=== PATIENT | male | born 1955 | race Caucasian/White ===

== ENCOUNTER 2020-08-20 12:44 | Emergency (ER) | payer OTHER ==
[~2020-08-20] VITALS: Ht 177.8 cm; Wt 107.2 kg
[2020-08-20 13:12] VITALS: BP 137/78
--- NOTE | 2020-08-20 14:35 | RAD ---
Study: CR SHOULDER 2+V RIGHT Indication: Fall. Popping. Comparison: None. Findings: No acute fracture is identified or traumatic malalignment. Moderate acromioclavicular joint arthrosis. No advanced arthrosis across the glenohumeral joint articulation. The visualized ribs are grossly intact. Left upper lung granulomas. Impression: No acute fracture or traumatic malalignment at the right shoulder. Electronically signed by: UMAIR BRODERICK MD (08/20/2020 2:32 PM) [id number]
--- NOTE | 2020-08-20 14:42 | PHYS DOC ---
Past Medical History Past Medical History: Anxiety, Asthma, High Cholesterol, Hypertension, Other Additional Past Medical Histor: BASIL CELL, MELANOMA ON BACK Past Surgical History: Other Additional Past Surgical Histo: BASIL CELL CARCINOMA Smoking Status: Former Smoker Alcohol Use: Heavy General Adult EDM: Chief Complaint: SHOULDER INJURY HPI: HPI: Patient is a 64 year old male presents to the emergency room for evaluation of right shoulder injury. He reports approximately 1 hour ago he fell inside and fell with his right arm stretched out. Since that time he has felt like his right shoulder dislocates and reduces if he does any type of overhead motion. He has never had this shoulder symptom in the past. Denies other injuries. Reports no loss of consciousness. Review of Systems: Review of Systems: Constitutional: Denies fever or chills. [] Eyes: Denies change in visual acuity. [] HENT: Denies nasal congestion or sore throat. [] Respiratory: Denies cough or shortness of breath. [] Cardiovascular: Denies chest pain or edema. [] GI: Denies abdominal pain, nausea, vomiting, bloody stools or diarrhea. [] : Denies dysuria. [] Musculoskeletal: Right shoulder pain. [] Integument: Denies rash. [] Neurologic: Denies headache, focal weakness or sensory changes. [] Endocrine: Denies polyuria or polydipsia. [] Lymphatic: Denies swollen glands. [] Psychiatric: Denies depression or anxiety. [] Heart Score: Risk Factors: Risk Factors: DM, Current or recent (<one month) smoker, HTN, HLP, family history of CAD, obesity. Risk Scores: Score 0 - 3: 2.5% MACE over next 6 weeks - Discharge Home Score 4 - 6: 20.3% MACE over next 6 weeks - Admit for Clinical Observation Score 7 - 10: 72.7% MACE over next 6 weeks - Early Invasive Strategies Allergies: Allergies: Allergies Coded Allergies Type Severity Reaction Last Updated Verified No Known Drug Allergies 08/20/20 No Physical Exam: PE: Constitutional: Well developed, well nourished, no acute distress, non-toxic appearance. [] HENT: Normocephalic, atraumatic, bilateral external ears normal, oropharynx moist, no oral exudates, nose normal. [] Eyes: PERRLA, EOMI, conjunctiva normal, no discharge. [] Neck: Normal range of motion, no tenderness, supple, no stridor. [] Skin: Warm, dry, no erythema, no rash.ABRASION TO NASAL BRIDGE [] Back: No tenderness, no CVA tenderness. [] Extremities: RT SHOULDER TTP, NORMAL ABDUCTION/ADDUCTION, POPS C OVERHEAD MOTION [] Neurologic: Alert and oriented X 3, normal motor function, normal sensory function, no focal deficits noted. [] Psychologic: Affect normal, judgement normal, mood normal. [] Current Patient Data: Vital Signs: Vital Signs Date Time Temp Pulse Resp B/P (MAP) Pulse Ox O2 Delivery O2 Flow Rate FiO2 08/20/20 13:12 98.2 112 24 137/78 (97) 95 Room Air 98.2 EKG: EKG: [] Radiology/Procedures: Radiology/Procedures: []PROCEDURE: SHOULDER 2+V RIGHT Study: CR SHOULDER 2+V RIGHT Indication: Fall. Popping. Comparison: None. Findings: No acute fracture is identified or traumatic malalignment. Moderate acromioclavicular joint arthrosis. No advanced arthrosis across the glenohumeral joint articulation. The visualized ribs are grossly intact. Left upper lung granulomas. Impression: No acute fracture or traumatic malalignment at the right shoulder. Electronically signed by: UMAIR BRODERICK MD (08/20/2020 2:32 PM) [id number] Course & Med Decision Making: Course & Med Decision Making Pertinent Labs and Imaging studies reviewed. (See chart for details) [] X-ray of the right shoulder is negative for acute findings, patient is placed in sling, advised follow-up with orthopedics, states he would like to see Dr. Cerrato, referral provided with discharge instructions. He declined prescription for pain medication. He will take [id number] medication as needed. Return to ER for new or worsening symptoms. Extremity is neurovascular intact, stable for discharge home. Felice Disclaimer: Fleice Disclaimer: This electronic medical record was generated, in whole or in part, using a voice recognition dictation system. Departure Departure Impression: Primary Impression: Right shoulder strain Qualified Codes: S46.911A - Strain of unspecified muscle, fascia and tendon at shoulder and upper arm level, right arm, initial encounter Disposition: 01 DC HOME SELF CARE/HOMELESS Referrals: GE JONES MD (PCP) TERENCE CERRATO MD Patient Instructions: Shoulder Pain GE SCHWARZ PIN CHASER Aug 20, 2020 14:42
== END 2020-08-20 15:08 | disposition home or self-care (01) ==
LOC: ER 12:44
DX: S46.911A Strain of unspecified muscle, fascia and tendon at shoulder and upper arm level, right arm, initial encounter (principal); J45.909 Unspecified asthma, uncomplicated; E78.00 Pure hypercholesterolemia, unspecified; I10 Essential (primary) hypertension; Z87.891 Personal history of nicotine dependence; W18.39XA Other fall on same level, initial encounter; Y93.89 Activity, other specified; Y92.89 Other specified places as the place of occurrence of the external cause; Y99.8 Other external cause status
CPT/HCPCS: 73030; 99283; A4565

== ENCOUNTER → 2020-09-01 | Outpatient (CLI) | payer OTHER ==
[2020-08-20 13:12] VITALS: BP 137/78
--- NOTE | 2020-09-01 17:02 | KCIC ---
EXAM: MRI right shoulder DATE: 09/01/2020 12:35 PM COMPARISON: Radiographs 08/20/2020 INDICATION: RIGHT SHOULDER PAIN, History: Recent fall with trauma to outstretched right arm. Pain and LROM. TECHNIQUE: Multiplanar, multisequence MRI of the right shoulder was performed without contrast. FINDINGS: Evaluation limited by motion artifact. Mild AC joint degenerative changes are seen with small associated osteophytes. Small right shoulder joint effusion. Subacromial-subdeltoid bursal fluid. There is a full-thickness, full width tear of the subscapularis tendon with retraction approximately 2.2 cm. There is a full-thickness, partial width tear of the supraspinatus tendon measuring approxima tely 1.5 cm in AP dimension. No discrete infraspinatus or teres minor tear. Moderate edema and linear T1 signal within the posterior, superior humeral head likely from Hill-Sachs deformity. Edema within the subscapularis and supraspinatus, likely strain, without discrete fatty atrophy. Long head biceps tendon is seen within the bicipital groove, likely from dislocation or tear, not wel l profiled. Pectoralis minor attachment of the coracoid normal in appearance. However coracobrachiali s attachment and short head biceps attachment is not well seen possibly obscured by motion artifact. Glenohumeral chondral thinning. Deformity of the posterior superior labrum, possibly degeneration or tear. IMPRESSION: 1. Full-thickness, full width tear of the subscapularis with retraction to the glenoid and full-thic kness, partial width tear of the supraspinatus, without muscle belly atrophy. Associated muscle strai n is noted. 2. Long head and short head biceps tendon as well as the coracobrachialis are not well profiled, pos sibly obscured by motion artifact although tear (or dislocation of the long head biceps tendon) may h ave this appearance. 3. Deformity of the posterior superior labrum likely chronic tear/degeneration. 4. Changes of the Hill-Sachs deformity. Electronically signed by: Jack Lujan MD (09/01/2020 5:00 PM) [id number]
== END ==
LOC: KCIC MRI 12:21
PROVIDERS: ATTEND Orthopaedic Surgery
DX: S46.811A Strain of other muscles, fascia and tendons at shoulder and upper arm level, right arm, initial encounter (principal); M25.411 Effusion, right shoulder; M75.121 Complete rotator cuff tear or rupture of right shoulder, not specified as traumatic; M25.711 Osteophyte, right shoulder; X58.XXXA Exposure to other specified factors, initial encounter; Y93.89 Activity, other specified; Y92.89 Other specified places as the place of occurrence of the external cause; Y99.8 Other external cause status
CPT/HCPCS: 73221

== ENCOUNTER → 2020-10-14 | Outpatient (CLI) | payer OTHER ==
[~2020-10-14] MED LIST: CETI10TA74 PO; FLUT1DIS5 IH; HYDR-2145 PO; IBUP-1007 PO; MULT-246 PO; OLME40TA12 PO; OXYC1TAB19 PO; SERT100T PO; SIMV20TA18 PO; VENTOLIN HFA18 GM INH
[2020-10-14 11:15] LABS: BASO # 0.1 x10^3/uL (0.0-0.2); BASO % 1 % (0-3); EOS # 0.4 x10^3/uL (0.0-0.7); EOS % 6 % (0-3); HEMATOCRIT 36.6 % (39.0-53.0); HEMOGLOBIN 12.4 g/dL (13.0-17.5); LYMPH # 1.2 x10^3/uL (1.0-4.8); LYMPH % 18 % (24-48); MEAN CORPUSCULAR HEMOGLOBIN 30 pg (25-35); MEAN CORPUSCULAR HGB CONC 34 g/dL (31-37); MEAN CORPUSCULAR VOLUME 89 fL (79-100); MONO # 0.6 x10^3/uL (0.0-1.1); MONO % 9 % (0-9); NEUT # 4.5 x10^3/uL (1.8-7.7); NEUT % 66 % (31-73); PLATELET COUNT 242 x10^3/uL (140-400); RED BLOOD COUNT 4.09 x10^6/uL (4.30-5.70); RED CELL DISTRIBUTION WIDTH 13.3 % (11.5-14.5); WHITE BLOOD COUNT 6.8 x10^3/uL (4.0-11.0)
--- NOTE | 2020-10-14 11:17 | EKG ---
[facility] [address] [place] [address] Test Date: 2020-10-14 Test Time: 11:12:46 Pat Name: MARÍA HENRY Department: Room: Gender: [employer] Director: WILLARD : 1955 Requested By: TERENCE SALVADOR Order Number: [id number] Reading MD: Ezio Berman Measurements Intervals [place] Rate: 95 P: -31 UT: 186 QRS: 74 QRSD: 84 T: 19 QT: 336 QTc: 425 Interpretive Statements SINUS RHYTHM LOW LIMB LEAD VOLTAGE RI6.02 No previous ECG available for comparison Electronically Signed On 10-16-2020 9:39:56 PAN [employer]ULCAN[employer]ER by Ezio Berman
[2020-10-14 11:26] LABS: CREATININE 1.3 mg/dL (0.7-1.3); GFR 55.8; POTASSIUM 4.7 mmol/L (3.5-5.1)
--- NOTE | 2020-10-14 18:13 | RAD ---
EXAM: XR CHEST 2V INDICATION: Reason: PREOP, RIGHT ROTATOR CUFF REPAIR 10/17/19, HTN, ASTHMA / Spl. Instructions: / Hist ory: . TECHNIQUE: PA and lateral views COMPARISON: None FINDINGS: The heart size is normal. The great vessels appear unremarkable. There is no hilar or mediastinal mass. The lungs are hyperinflated in a pattern suggesting underlying COPD. No focal infiltrates.. There is no pleural effusion or pneumothorax. There are no significant osseous abnormalities. IMPRESSION: No active cardiopulmonary disease. Hyperinflation suggesting underlying COPD. Electronically signed by: Chicho Martinez MD (10/14/2020 6:11 PM) [id number]
== END ==
LOC: LAB 10:31
PROVIDERS: ATTEND Orthopaedic Surgery
DX: Z01.812 Encounter for preprocedural laboratory examination (principal); Z20.822 Contact with and (suspected) exposure to COVID-19; S46.011D Strain of muscle(s) and tendon(s) of the rotator cuff of right shoulder, subsequent encounter; X58.XXXD Exposure to other specified factors, subsequent encounter
CPT/HCPCS: 36415; 71046; 80048; 85025; 93005; U0003

== ENCOUNTER 2020-10-17 10:46 | Day surgery (SDC) | payer OTHER ==
[~2020-10-17] VITALS: Ht 177.8 cm; Wt 111.1 kg
[~2020-10-17 10:46] MED LIST changes: +HYDROmorphone 2 MG/ML VIAL IVP PRN; +IV RINGERS,LACTATED 1000ML 1,000 ML IV SCH; +MORPHINE SULFATE 2 MG/ML VIAL. IVP PRN; -OXYC1TAB19 PO; +PROCHLORPERAZINE 10 MG/2 ML VIAL. IVP PRN; +fentaNYL PF VIAL 100 MCG/2 ML VIAL IVP PRN
[2020-10-17] MEDS ORDERED: MIDAZOLAM HCL/PF 2 MG/2 ML VIAL. ONE (12:05)
[2020-10-17] MEDS ORDERED: EPINEPHrine 1 MG/ML VIAL ONE (12:06)
[2020-10-17] MEDS ORDERED: BUPIVACAINE MPF 0.5% 30 ML VIAL. ONE (12:06)
[2020-10-17] MEDS ORDERED: LIDOCAINE 1% PF 2 ML VIAL. ONE (12:06)
[2020-10-17] MEDS ORDERED: DEXAMETHASONE SOD PHOS 20 MG/5 ML VIAL. ONE (12:06)
[2020-10-17] MEDS ORDERED: fentaNYL PF VIAL 100 MCG/2 ML VIAL ONE (12:29)
[2020-10-17] MEDS ORDERED: EPINEPHrine VIAL 30 MG/30 ML VIAL ONE (12:33)
[2020-10-17] MEDS ORDERED: SEVOFLURANE 31 TO 60 MINUTES. IH ONE (13:05)
[2020-10-17] MEDS ORDERED: ONDANSETRON PF 4 MG/2 ML VIAL. ONE (13:05)
[2020-10-17] MEDS ORDERED: DEXAMETHASONE SOD PHOS 4 MG/ML VIAL ONE (13:05)
[2020-10-17] MEDS ORDERED: BUPIVACAINE MPF 0.25% 30 ML VIAL. IJ ONE (13:41)
[2020-10-17] MEDS ORDERED: PHENYLEPHRINE 10 MG/ML VIAL. ONE (13:51)
[2020-10-17] MEDS ORDERED: BUPIVACAINE MPF 0.25% 30 ML VIAL. ONE (15:50)
[2020-10-17] MEDS ORDERED: OXYC1TAB19 PO (16:09)
[2020-10-17] MEDS ORDERED: IPRATRPIUM/ALBUTEROL 0.5/2.5MG 3 ML NEBU. ONE (16:14)
[2020-10-17] MEDS ORDERED: IPRATRPIUM/ALBUTEROL 0.5/2.5MG 3 ML NEBU. NEB ONE (16:15)
--- NOTE | 2020-10-17 16:24 | DISCH ---
DISCHARGE INSTRUCTIONS Condition on Discharge Condition on Discharge: Stable Activity After Discharge Activity Instructions for Disc: Other, see below (Allowed fine motor use with his elbow at side only such as eating writing and typing pendulum exercises no active lifting arm away from his body) Weight Bearing Status after Di: Non weight bearing Diet after Discharge Diet after Discharge: Regular Wound Incision Care Wound/Incision Care: Change dressing (Remove dressing in 2 days may then shower) Community/Resources/Services Services at Discharge: PT EVALUATE & TREAT (Passive range of motion only to right shoulder for 1 month postop) Contacting the after DC Call your doctor for: Concerns you may have Follow-Up Follow up with: Dr. Cerrato 10 days TERENCE CERRATO MD Oct 17, 2020 16:24
[2020-10-17] MEDS ORDERED: oxyCODONE/APAP 7.5/325 1 TAB TABLET PO ONE (17:00)
--- NOTE | 2020-10-17 17:28 | PDOC4 ---
Operative Note Operative Note Date of surgery: 10/17/2020 Preoperative diagnosis: Right shoulder rotator cuff tear Postoperative diagnosis: Subscapularis tear with retraction and L-shaped supraspinatus and infraspinatus tear with retraction Operative procedure: Right shoulder arthroscopy with arthroscopic supraspinatus repair labral debridement and open subscapularis repair Surgeon: Saqib Certified Dialysis Technician: Rambo Vincent and Keyana Gibson certified surgical tech/first assistant Anesthesia: General plus scalene block Estimated blood loss: 50 cc Complications: None Operative indications: Please see my orthopedic clinic note for detailed operative indications and note that patient wishes to proceed with surgical evaluation and treatment including addressing of any rotator cuff or other observed pathology and we went over the possibility of infection nonhealing nerve or blood vessel damage medical or other anesthetic complications among others and the rationale for postoperative restrictions. He agrees to proceed with surgical evaluation and treatment Operative text: Patient was identified procedure verified patient placed in the supine position on the operating table. After adequate amounts of general anesthesia were administered plus a pre-existing scalene block he was placed in the decubitus position right side up all bony prominences were well-padded right shoulder was examined under anesthesia found to have full range of motion and no instability. The right shoulder was then prepped and draped in standard sterile fashion and placed in the arthroscopic arm winkler with a total of 10 pounds of traction. After timeout was performed patient procedure identified and verified a standard posterior portal was established an anterior portal established using spinal needle localization and the shoulder joint was systematically examined. He was found to have a full-thickness retracted tear of the subscapularis which I lightly debrided and attempted mobilization. Biceps was chronically ruptured labrum was severely frayed and was debrided back to stable tissue. Capsuloligamentous structures were intact. He had a large L-shaped retracted t ear of the supraspinatus and infraspinatus with well-maintained glenohumeral joint. Subacromial space was then entered and bursa was debrided and rotator cuff was mobilized and the rotator cuff footprint was debrided and shaved back to bleeding bony tissue. With good mobilization of the L-shaped tear repair was carried out by placing a composite TCP anchor double loaded 5.5 posteriorly and a juggernaut all suture anchor double loaded anteriorly at the medial aspect of the rotator cuff footprint. Sutures were placed in a mattress fashion secured using sliding locking knots and lateral footprint fixation carried out with a Quatro link knotless 5.5 mm peek anchor. The L-shaped tear was noted to be well approximated on all degrees of internal/external rotation. A small open incision was made anteriorly to further mobilize the subscapularis which was quite compromised and retracted but sufficient mobilizing to the footprint was achieved and a single juggernaut double loaded anchor with needles was placed and sutures placed in a mattress fashion and reapproximated to the rotator cuff footprint and further repair across the rotator interval with max braid suture. Irrigation further carried out with arthroscopic fluid closure accomplished with buried Vicryl sutures skin closure with Monocryl sterile dressings were applied patient was placed in a shoulder immobilizer he was returned to recovery room in stable condition having tolerated procedure well Rambo wasserman assist was present for the procedure assisted in patient positioning prepping draping retraction and Keyana Gibson assisted later with closure and dressings TERENCE SALVADOR MD Oct 17, 2020 17:28
[2020-10-17 17:40] VITALS: BP 101/50
== END 2020-10-17 18:30 | disposition home or self-care (01) ==
LOC: SURG 10:46
PROVIDERS: ATTEND Orthopaedic Surgery
DX: M75.101 Unspecified rotator cuff tear or rupture of right shoulder, not specified as traumatic (principal); E78.00 Pure hypercholesterolemia, unspecified; I10 Essential (primary) hypertension; J45.909 Unspecified asthma, uncomplicated; M19.90 Unspecified osteoarthritis, unspecified site; Z85.828 Personal history of other malignant neoplasm of skin; Z79.899 Other long term (current) drug therapy; Z98.890 Other specified postprocedural states; Z87.891 Personal history of nicotine dependence; Z72.89 Other problems related to lifestyle
CPT/HCPCS: 29827; 94640; C1713; J0171; J0690; J1100; J2250; J2370; J2405; J3010; J3490; J7120

== ENCOUNTER → 2021-06-23 | Outpatient (CLI) | payer OTHER ==
[~2021-06-23] MED LIST changes: -HYDROmorphone 2 MG/ML VIAL IVP PRN; -IV RINGERS,LACTATED 1000ML 1,000 ML IV SCH; -MORPHINE SULFATE 2 MG/ML VIAL. IVP PRN; +OXYC1TAB19 PO; -PROCHLORPERAZINE 10 MG/2 ML VIAL. IVP PRN; -fentaNYL PF VIAL 100 MCG/2 ML VIAL IVP PRN
--- NOTE | 2021-06-23 11:14 | RAD ---
MR#: [id number] Date of Study: 06/23/2021 Ordering Physician: LIAM ELLIOTT Referring Physician: CLARE ZUNIGA Tech: APPROVED REPORT Test Type: Exercise Stress Nurse/Tech: Amanda Townsend RN Test Indications: Dyspnea on exertion Cardiac History: Family history Medications: See Electronic Medical Record Medical History: See Electronic Medical Record Resting ECG: SR Resting Heart Rate: 92 bpm Resting Blood Pressure: 139/84mmHg Pretest Chest Pain: No chest pain Nurse/Tech Notes S1,S2 and wheezes in bilateral upper lobes. Stress Symptoms Dyspnea,Fatigue POST EXERCISE Reason for Termination: Fatigue, Patient request, Dyspnea Target HR: Yes Max HR: 210 bpm 157% of Maximum Predicted HR: 133 bpm Exercise duration: 2:48 min:sec, I Stage Exercise capacity: 4.6METs Max Blood Pressure: 163/75mmHg Blood Pressure response to exercise: Normal blood pressure response during stress. Heart Rate response to exercise: WNL Chest Pain: No. Arrhythmia: No. ST Change: No. INTERPRETATION Stress EKG Conclusion: Baseline EKG showed sinus rhythm with old anteroseptal infarct. Nondiagnostic changes at peak stress. No arrhythmias. Conclusion 1. Treadmill exercise stress electrocardiogram did not show any diagnostic evidence of inducible isch emia. 2. Patient had poor activity tolerance. Signed by : Dayron Jasso, Electronically Approved : 06/23/2021 11:14:05
--- NOTE | 2021-06-23 11:32 | CARD ---
MR#: [id number] Date of Study: 06/23/2021 Ordering Physician: LIAM ELLIOTT, Referring Physician: LIAM ELLIOTT, Tech: Khushi Mejia [facility] APPROVED REPORT EXAM: Two-dimensional and M-mode echocardiogram with Doppler and color Doppler. Other Information Quality : AverageHR: 92bpm Rhythm : NSR INDICATION Dyspnea RISK FACTORS Obesity 2D DIMENSIONS RVDd3.7 (2.9-3.5cm)Left Atrium(2D)3.4 (1.6-4.0cm) IVSd1.0 (0.7-1.1cm)Aortic Root(2D)3.8 (2.0-3.7cm) LVDd5.0 (3.9-5.9cm)LVOT Diameter2.3 (1.8-2.4cm) PWd1.1 (0.7-1.1cm)LVDs2.7 (2.5-4.0cm) FS (%) 46.1 %SV92.3 ml LVEF(%)77.2 (>50%) Aortic Valve AoV Peak Miguelito.157.8cm/sAoV VTI31.1cm AO Peak GR.10.0mmHgLVOT Peak Miguelito.124.8cm/s AO Mean GR.5mmHgAVA (VMAX)3.35cm2 Mitral Valve MV E Uodaqjww10.6cm/sMV DECEL [id number] MV A Pbpicuga05.8cm/sE/A Ratio0.9 Pulmonary Valve PV Peak Fzogwbtg721.7cm/s LEFT VENTRICLE The left ventricle is normal size. There is normal left ventricular wall thickness. The left ventricu lar systolic function is normal. Esitmated ejection fraction 60-65%. There is normal LV segmental wa ll motion. Transmitral Doppler flow pattern is Grade I-abnormal relaxation pattern. RIGHT VENTRICLE The right ventricle is normal size. There is normal right ventricular wall thickness. The right ventr icular systolic function is normal. ATRIA The left atrium size is normal. The right atrium size is normal. The interatrial septum is intact wit h no evidence for an atrial septal defect or patent foramen ovale as noted on 2-D or Doppler imaging. AORTIC VALVE The aortic valve is normal in structure and function. Doppler and Color Flow revealed no significant aortic regurgitation. There is no significant aortic valvular stenosis. MITRAL VALVE The mitral valve is normal in structure and function. There is no evidence of mitral valve prolapse. There is no mitral valve stenosis. Doppler and Color Flow revealed no mitral valve regurgitation note d. TRICUSPID VALVE The tricuspid valve is normal in structure and function. Doppler and Color Flow revealed no tricuspid valve regurgitation noted. There is no tricuspid valve stenosis. PULMONIC VALVE The pulmonary valve is normal in structure and function. Doppler and Color Flow revealed no pulmonic valvular regurgitation. GREAT VESSELS The aortic root is mildly enlarged. The ascending aorta is Mildly dilated. The IVC is normal in size and collapses >50% with inspiration. PERICARDIAL EFFUSION There is no evidence of significant pericardial effusion. Critical Notification Critical Value: No <Conclusion> The left ventricular systolic function is normal. Esitmated ejection fraction 60-65%. There is normal LV segmental wall motion. Transmitral Doppler flow pattern is Grade I-abnormal relaxation pattern. There is no evidence of significant pericardial effusion. Signed by : Dayron Jasso, Electronically Approved : 06/23/2021 11:32:10
== END ==
LOC: NM 08:14
PROVIDERS: ATTEND Internal Medicine Pulmonary Disease
DX: J45.909 Unspecified asthma, uncomplicated (principal)
CPT/HCPCS: 93017; 93306

== ENCOUNTER → 2021-07-20 | Outpatient (CLI) | payer OTHER ==
[2021-07-20 13:35] LABS: BASO # 0.1 x10^3/uL (0.0-0.2); BASO % 1 % (0-3); EOS # 0.3 x10^3/uL (0.0-0.7); EOS % 5 % (0-3); HEMATOCRIT 40.3 % (39.0-53.0); HEMOGLOBIN 13.5 g/dL (13.0-17.5); LYMPH # 1.2 x10^3/uL (1.0-4.8); LYMPH % 17 % (24-48); MEAN CORPUSCULAR HEMOGLOBIN 30 pg (25-35); MEAN CORPUSCULAR HGB CONC 34 g/dL (31-37); MEAN CORPUSCULAR VOLUME 91 fL (79-100); MONO # 0.6 x10^3/uL (0.0-1.1); MONO % 8 % (0-9); NEUT # 5.2 x10^3/uL (1.8-7.7); NEUT % 70 % (31-73); PLATELET COUNT 266 x10^3/uL (140-400); RED BLOOD COUNT 4.44 x10^6/uL (4.30-5.70); RED CELL DISTRIBUTION WIDTH 13.2 % (11.5-14.5); WHITE BLOOD COUNT 7.3 x10^3/uL (4.0-11.0)
[2021-07-22 10:15] LABS: ASPERGILLUS 0.23 kU/L (Class 0/I)
== END ==
LOC: LAB 13:03
PROVIDERS: ATTEND Internal Medicine Pulmonary Disease
DX: R06.02 Shortness of breath (principal)
CPT/HCPCS: 36415; 82785; 85025; 86003